=== PATIENT | female | born 1945 | race African-American/Black ===

== ENCOUNTER 2016-11-04 17:53 | Inpatient (IN) | payer OTHER ==
[~2016-11-04] VITALS: Ht 154.9 cm; Wt 53.9 kg
--- NOTE | ~2016-11-04 | EKG ---
[address] [employer] [place] [address] ELECTROCARDIOGRAM REPORT Name: TANISHA DOMÍNGUEZN Room #: 459-P ADM IN M.R.#: [id number] Admission: 11/04/16 Attend Phys: Thomas Callaway MD Discharge: Date of : 43 Report #: [id number] THIS REPORT FOR: //name// [facility] ED Test Date: 2016-11-04 Test Time: 18:25:33 Pat Name: MARISSA DOMÍNGUEZ Department: Room: [facility] Gender: F Spragger: Marquis VALLEJO : 1945 Requested By: Arlene Reyes Order Number: [id number] MD: Khanh Bhat Measurements Intervals [place] Rate: 100 P: 92 TX: 156 QRS: 36 QRSD: 97 T: 105 QT: 354 QTc: 457 Interpretive Statements Sinus tachycardia Right atrial enlargement Nonspecific T abnrm No previous ECG available for comparison Electronically Signed On 11-05-2016 9:14:11 CDT by Khanh Bhat [email or web address] <ELECTRONICALLY SIGNED> By: Khanh Bhat MD, [facility] 11/05/16 0914 D: [id number] Khanh Bhat MD, FACC /EPI
--- NOTE | ~2016-11-04 | EEG ---
[facility] [place] [address] ELECTROENCEPHALOGRAM Name: MARISSA DOMÍNGUEZ Room #: 459-P [facility] IN M.R.#: [id number] Admission: 11/04/16 Attend Phys: Thomas Callaway MD Discharge: 11/06/16 Date of : 43 Report #: [id number] THIS REPORT FOR: //name// CC: [facility] physician/PCP Shania Callaway DATE OF SERVICE: 11/05/2016 This patient is being evaluated for the possibility of seizure. EEG was done by placing the electrodes by standard 10-20 system of electrode placement. Both referential and sequential montages were used for recording. Background activity in this patient's EEG is about 9 Hz and 15 microvolt. This is a symmetrical activity, but in the right frontal area the activity is abnormal. Apparently, this patient's rest of the EEG is unremarkable. The patient does appear to be drowsy and goes to sleep during part of this EEG and that is associated with further slowing and vertex sharp waves. Photic stimulation was not done because of technical reason. IMPRESSION: This is an abnormal EEG in which activity being abnormal in the frontal area. Activity is pretty irregular and poorly formed there. That may be because of breach rythem but possibility of seizure from there should be considered. Thank you very much for this referral. <ELECTRONICALLY SIGNED> By: Tristen Hope MD 11/07/16 1933 0844 6 MD jaye Rivera
--- NOTE | ~2016-11-04 | HC ---
[facility] [place] [address] CONSULTATION Name: TANISHA DOMÍNGUEZN Room #: 459-P [facility] IN M.R.#: [id number] Admission: 11/04/16 Attend Phys: Thomas Callaway MD Discharge: 11/06/16 Date of : 43 Report #: [id number] THIS REPORT FOR: //name// CC: JEANNE physician/PCP Shania Callaway DATE OF SERVICE: 11/05/2016 IDENTIFICATION: Psychiatric consultation is requested for potential reaction to Haldol. HISTORY OF PRESENT ILLNESS: The patient is a 70-year-old female with a past history of brain metastases secondary to lung cancer, status post excision many years ago. She has had a chronic history of hallucinations since that time. For many years, they did not require any particular treatment, but more recently, the hallucinations had worsened. The patient presents to the hospital after an episode of not responding. She was staring blankly off into space and did not respond. She was brought into hospital for further workup and treatment. The patient did not lose consciousness during the episode. She had no episodes of incontinence either. There were no tonic-clonic movements described either. There was initially some concern that the patient may have had a dystonic reaction to the Haldol, but there is no evidence for dystonic posturing upon arrival to the hospital and the episode resolved spontaneously, without any treatment with anticholinergic medications. The patient's caregiver has been involved in her care. He reports that she has been on bupropion for a number of years, tolerating that well. Years ago, she had been treated with Haldol for hallucinations. Hallucinations improved and were not bothersome and so, she was not on Haldol for a number of years. She did continue hallucinating, but without any particular dysfunction. More recently, hallucinations have been quite frequent and bothersome and so, she had been restarted on Haldol 0.5 mg. There was not much benefit achieved with this, although there was noted to be some improvement. ALLERGIES: Reviewed. No psychiatric medication allergies. MEDICATIONS: At home, she took Haldol 0.5 mg twice daily and bupropion, but these are held here in the hospital. PAST MEDICAL HISTORY: History remotely of seizures, history of lung cancer with brain metastases and mvkig-ekt-jeje amputation. FAMILY HISTORY: Noncontributory. [address] [address] CONSULTATION Name: MARISSA DOMÍNGUEZ Room #: 459-P [facility] IN ..#: [id number] Admission: 11/04/16 Attend Phys: Thomas Callaway MD Discharge: 11/06/16 Date of : 43 Report #: [id number] SOCIAL HISTORY: She has a caregiver. She is retired. No records of substance abuse. MENTAL STATUS EXAMINATION: Drowsy, calm, poor eye contact, decreased amount of spontaneous speech. No current hallucinations or delusions. No suicidal or homicidal ideation. Affect flat, diffuse disoriented. Insight and judgment poor. DIAGNOSIS: Psychosis, not otherwise specified. PLAN: Firstly, the patient's episode is not consistent with a dystonic reaction. Dystonia from Haldol would not resolve spontaneously without administration of an anticholinergic medication. Furthermore, there was no evidence of dystonia on exam upon admission. Rather the patient's episode is more consistent with either a seizure or else psychosis. The patients who are actively hallucinating often times will be attending to internal stimuli and not attending to external stimuli as was the case here. I do agree with pursuing workup and treatment for seizures. Bupropion lowers the seizure threshold as do antipsychotics and so it is possible that the addition of the Haldol in conjunction with the bupropion may have contributed to her seizure risk. We will add Risperdal to be given as needed in case of hallucinations, which appear to be a chronic concern for the patient. I will follow up with the patient again tomorrow. I discussed the treatment plan with her caregiver. Thank you for this consultation. Please contact me with any further questions or concerns. By: [id number] Jacqui Dong MD /nt
[2016-11-04 19:33] LABS: URINE BILIRUBIN NEGATIVE (Negative); URINE BLOOD NEGATIVE (Negative); URINE COLOR YELLOW; URINE GLUCOSE-RANDOM* NEGATIVE (Negative); URINE KETONES NEGATIVE (Negative); URINE NITRITE NEGATIVE (Negative); URINE PROTEIN (DIPSTICK) NEGATIVE (Negative); URINE UROBILINOGEN 0.2 E.U./dl (0.2-1.0)
[2016-11-04 19:42] LABS: AMP/METHAMP Negative (Negative); BARBITURATES Negative (Negative); BENZODIAZEPINES Negative (Negative); COCAINE Negative (Negative); METHADONE Negative (Negative); OPIATES Negative (Negative); PCP Negative (Negative); THC Negative (Negative)
[2016-11-04] MEDS ORDERED: HALDOL 0.5 MG0.5 MG PO (20:05)
[2016-11-04] MEDS ORDERED: WELLBUTRIN 100100 MG (20:05)
[2016-11-04 20:13] LABS: ABSOLUTE NEUTROPHILS 5.3 thou/uL (1.4-8.2); BASOPHILS 0.3 % (0.0-2.0); EOSINOPHILS 3.2 % (0.0-3.0); HEMATOCRIT 40.6 % (37.0-47.0); HEMOGLOBIN 13.6 gm/dL (12.0-15.0); LYMPHOCYTES 14.3 % (24.0-44.0); MCH 29.8 pg (26.0-34.0); MCHC 33.4 g/dL (28.0-37.0); MCV 89.2 fL (80.0-100.0); MONOCYTES 7.4 % (1.0-8.0); PLATELET COUNT 235 thou/uL (150-400); POLYS 74.8 % (36.0-66.0); RBC 4.55 mil/uL (4.20-5.00); RDW 15.3 % (10.5-14.5); WBC 7.1 thou/uL (4.0-11.0)
[2016-11-04 20:15] LABS: MANUAL DIFF NO
[2016-11-04 20:23] LABS: ANION GAP 5 mmol/L (7-16); BUN 8 mg/dL (7-18); CALCIUM 8.9 mg/dL (8.5-10.1); CHLORIDE 101 mmol/L (98-107); CO2 29 mmol/L (21-32); CREATININE 0.8 mg/dL (0.6-1.3); GLUCOSE 103 mg/dL (70-99); POTASSIUM 4.2 mmol/L (3.5-5.1); SODIUM 135 mmol/L (136-145)
[2016-11-04 20:30] LABS: ALBUMIN 3.2 g/dL (3.4-5.0); ALKALINE PHOSPHATASE 95 U/L (46-116); SGOT 20 U/L (15-37); SGPT 12 U/L (30-65); TOTAL BILIRUBIN 0.2 mg/dL (<0.1-1.0); TOTAL PROTEIN 7.9 g/dL (6.4-8.2); TROPONIN-I < 0.04 ng/mL (<0.04-0.07)
[2016-11-04 20:32] LABS: INR 1.1
[2016-11-04] MEDS ORDERED: WELLBUTRIN XL150 MG PO (20:53)
[2016-11-06] MEDS ORDERED: KEPPRA 500 MG500 M1 PO (14:02)
[2016-11-06] MEDS ORDERED: RISPERIDONE 00.25 M1 PO (14:02)
== END 2016-11-06 16:45 | disposition home or self-care (01) | DRG 101 ==
LOC: ER 17:53 → 4W 21:42 → EROBS 21:42 → 4W 22:05
PROVIDERS: Physician Assistant
DX: G40.909 Epilepsy, unspecified, not intractable, without status epilepticus (principal); G24.09 Other drug induced dystonia; K56.7 Ileus, unspecified; I10 Essential (primary) hypertension; F29 Unspecified psychosis not due to a substance or known physiological condition; T43.4X5A Adverse effect of butyrophenone and thiothixene neuroleptics, initial encounter; T43.295A Adverse effect of other antidepressants, initial encounter; Y92.89 Other specified places as the place of occurrence of the external cause; Z85.118 Personal history of other malignant neoplasm of bronchus and lung; Z85.841 Personal history of malignant neoplasm of brain; Z89.612 Acquired absence of left leg above knee; Z88.6 Allergy status to analgesic agent; Z88.8 Allergy status to other drugs, medicaments and biological substances
CPT/HCPCS: 10045